=== PATIENT | female | born 1990 | race Two or more races ===

== ENCOUNTER 2016-11-12 13:45 | Observation (INO) | payer SELFPAY ==
[~2016-11-12] VITALS: Ht 162.6 cm; Wt 70.3 kg
[2016-11-12 13:55] VITALS: BP 113/58
[2016-11-12] MEDS ORDERED: TERBUTALINE 1 MG/ML VIAL SUBQ SCH (17:05)
[2016-11-12] MEDS ORDERED: TERBUTALINE 1 MG/ML VIAL SUBQ ONE ×2 (17:13→18:17)
[2016-11-12 19:46] VITALS: BP 120/73
== END 2016-11-12 20:20 | disposition home or self-care (01) ==
LOC: MLD 13:45
PROVIDERS: ADMIT Obstetrics & Gynecology; ATTEND Obstetrics & Gynecology
DX: O62.9 Abnormality of forces of labor, unspecified (principal); Z3A.37 37 weeks gestation of pregnancy
CPT/HCPCS: 76805; 96372; G0378; J3105; Q0092

== ENCOUNTER 2016-11-13 12:00 | Inpatient (IN) | payer SELFPAY ==
[~2016-11-13] VITALS: Ht 162.6 cm; Wt 70.3 kg
[2016-11-13] MEDS ORDERED: LACTATED RINGERS 1,000 ML IV SCH (13:20)
[2016-11-13] MEDS ORDERED: OXYTOCIN 20 UNITS in LACTATED RINGERS 1,000 ML IV SCH ×2 (13:20→23:05)
[2016-11-13] MEDS ORDERED: OXYTOCIN 10 UNITS/ML VIAL IM SCH (13:20)
[2016-11-13 14:06] LABS: BILIRUBIN,URINE 1+ (NEGATIVE); BLOOD, URINE 2+ (NEGATIVE); COLOR,URINE YELLOW (YELLOW); LEUKOCYTE ESTERASE ,URINE 1+ (NEGATIVE); NITRITE, URINE NEGATIVE (NEGATIVE); UGLUCOSE NEGATIVE (NEGATIVE)
[2016-11-13 14:09] LABS: BASOPHILS # (AUTO) 0.1 K/uL (0.00-0.22); BASOPHILS % (AUTO) 0.6 % (0.0-2.0); EOSINOPHILS # (AUTO) 0.1 K/uL (0-0.4); EOSINOPHILS % (AUTO) 0.8 % (0.0-4.0); HEMATOCRIT 35.4 % (36-48); HEMOGLOBIN 11.6 g/dL (12.0-16.0); LYMPHOCYTES % (AUTO) 9.2 % (20.5-51.1); MEAN CORPUSCULAR HEMOGLOBIN 29 pg (27-31); MEAN CORPUSCULAR HGB CONC 33 g/dL (33-37); MEAN CORPUSCULAR VOLUME 87 fL (80-94); MONOCYTES # (AUTO) 0.5 K/uL (0.8-1.0); MONOCYTES % (AUTO) 4.7 % (1.7-9.3); NEUTROPHILS # (AUTO) 9.4 K/uL (1.8-7.7); NEUTROPHILS % (AUTO) 84.7 % (42.2-75.2); PLATELET COUNT (AUTO) 122 K/uL (140-450); RED BLOOD CELL COUNT(AUTO) 4.09 MIL/uL (4.20-5.40); RED CELL DISTRIBUTION WIDTH 15.8 % (11.6-13.7); WHITE BLOOD COUNT (AUTO) 11.1 K/uL (4.8-10.8)
[2016-11-13 14:12] LABS: APPEARANCE,URINE HAZY (CLEAR)
[2016-11-13 14:16] LABS: RBC,URINE 11-20 (MOD) /HPF (0-5); WBC,URINE 16-25 (MOD) /HPF (0-5)
[2016-11-13 14:16] LABS: ANION GAP 16.1 (8-16); CARBON DIOXIDE 18.6 mmol/L (21-32); CREATININE 0.6 mg/dL (0.6-1.3); POTASSIUM 3.7 mmol/L (3.5-5.1)
[2016-11-13 14:22] LABS: ALBUMIN 2.7 g/dL (3.4-5.0); TOTAL BILIRUBIN 0.3 mg/dL (0.0-1.0)
[2016-11-13] MEDS: LACTATED RINGERS 1,000 ML IV SCH ×2 (14:38→15:54)
[2016-11-13] MEDS ORDERED: AMPICILLIN 2,000 MG VIAL ONE (14:56)
[2016-11-13] MEDS ORDERED: BUPIVACAINE 0.125%/NS PREMIX 250 ML ONE (15:39)
[2016-11-13] MEDS ORDERED: OXYTOCIN 20 UNITS/LR PREMIX 1,000 ML IV ONE (18:46)
[2016-11-13] MEDS ORDERED: AMPICILLIN 1,000 MG VIAL ONE (19:41)
[2016-11-13] MEDS ORDERED: AMPICILLIN 1,000 MG in NACL 0.9% 50 ML IV SCH (20:00)
[2016-11-13] MEDS ORDERED: LIDOCAINE 1% 50 ML ONE (21:22)
[2016-11-13] MEDS ORDERED: OXYTOCIN 10 UNITS/ML VIAL ONE (22:51)
[2016-11-13] MEDS ORDERED: oxyCODONE/APAP 5/325 MG 1 TAB TAB PO PRN (23:05)
[2016-11-13] MEDS ORDERED: ACETAMINOPHEN 325 MG TAB PO PRN (23:05)
[2016-11-13] MEDS ORDERED: BISACODYL 5 MG TABEC PO PRN (23:05)
[2016-11-13] MEDS ORDERED: MEASLES, MUMPS, AND RUBELLA 1 VIAL SQVAC PRN (23:05)
[2016-11-14] MEDS ORDERED: LACTATED RINGERS 1,000 ML IV SCH ×3 (02:00→08:00)
[2016-11-14] MEDS ORDERED: AMPICILLIN 2,000 MG VIAL ONE ×3 (02:13→11:57)
[2016-11-14] MEDS: AMPICILLIN 2,000 MG in NACL 0.9% 100 ML IV SCH ×3 (02:34→12:00)
[2016-11-14 07:59] LABS: HEMATOCRIT 31.5 % (36-48); HEMOGLOBIN 10.2 g/dL (12.0-16.0); MEAN CORPUSCULAR HEMOGLOBIN 27 pg (27-31); MEAN CORPUSCULAR HGB CONC 32 g/dL (33-37); MEAN CORPUSCULAR VOLUME 85 fL (80-94); PLATELET COUNT (AUTO) 120 K/uL (140-450); RED BLOOD CELL COUNT(AUTO) 3.71 MIL/uL (4.20-5.40); WHITE BLOOD COUNT (AUTO) 16.3 K/uL (4.8-10.8)
[2016-11-14 08:28] LABS: LYMPHOCYTES % (MANUAL) 9 % (20-46); MONOCYTES % (MANUAL) 4 % (5-12)
--- NOTE | 2016-11-14 09:10 | NUR ---
PATIENT HAS BEEN SCREENED AND CATEGORIZED LOW NUTRITION RISK. PATIENT WILL BE SEEN WITHIN 7 DAYS OF ADMISSION. 11/20/[address]
[2016-11-14] MEDS ORDERED: MEASLES, MUMPS, AND RUBELLA 1 VIAL SQVAC PRN (20:45)
[2016-11-15 06:20] LABS: HEPATITIS B SURFACE ANTIGEN Negative (Negative)
[2016-11-15] MEDS ORDERED: FERR325E14 PO (14:02)
[2016-11-15] MEDS ORDERED: ACET-2619 PO (14:04)
== END 2016-11-15 15:15 | disposition home or self-care (01) | DRG 775 ==
LOC: MLD 12:00 → OBSVTOIN 13:27 → MFCC 11-14 06:15
PROVIDERS: ADMIT Obstetrics & Gynecology; ATTEND Obstetrics & Gynecology
PROC: 10E0XZZ Delivery of Products of Conception, External Approach (ICD-10-PCS; principal; 2016-11-13)
PROC: 10907ZC Drainage of Amniotic Fluid, Therapeutic from Products of Conception, Via Natural or Artificial Opening (ICD-10-PCS; 2016-11-13)
PROC: 00HU33Z Insertion of Infusion Device into Spinal Canal, Percutaneous Approach (ICD-10-PCS; 2016-11-13)
PROC: 3E0R3CZ (ICD-10-PCS; 2016-11-13)
PROC: 3E0234Z Introduction of Serum, Toxoid and Vaccine into Muscle, Percutaneous Approach (ICD-10-PCS; 2016-11-14)
DX: O77.0 Labor and delivery complicated by meconium in amniotic fluid (principal); O64.0XX0 Obstructed labor due to incomplete rotation of fetal head, not applicable or unspecified; Z37.0 Single live birth; Z3A.37 37 weeks gestation of pregnancy; Z23 Encounter for immunization; Z83.79 Family history of other diseases of the digestive system
CPT/HCPCS: 36415; 51702; 59409; 80053; 81001; 85025; 86592; 86762; 86886; 86900; 86901; 87086; 87340; 90715; G0378; J0290; J2001; J2590; J3490; J7030; J7120